=== PATIENT | male | born 1985 | race Caucasian/White ===

== ENCOUNTER 2019-05-04 09:45 | Emergency (ER) | payer OTHER ==
[~2019-05-04] VITALS: Ht 182.9 cm; Wt 83.9 kg
[2019-05-04 10:26] LABS: Urine Bacteria NONE SEEN /hpf (None Seen); Urine Blood Negative /uL (Negative); Urine Mucus FEW (None Seen); Urine Specific Gravity 1.022 (1.001-1.035); Urine WBC 1 /hpf (0 - 3)
[2019-05-04 10:44] LABS: Amphetamine Screen, Urine NEGATIVE (NEGATIVE); Barbiturate Scree,Urine NEGATIVE (NEGATIVE); Benzodiazephine Screen, Urine NEGATIVE (NEGATIVE); Cannabinoid Screen, Urine NEGATIVE (NEGATIVE); Cocaine Screen, Urine NEGATIVE (NEGATIVE); Opiate Scree,Urine NEGATIVE (NEGATIVE); Phencyclidine Screen, Urine NEGATIVE (NEGATIVE)
[2019-05-04] MEDS ORDERED: ONDANSETRON ODT 4 MG TAB PO ONE (10:45)
[2019-05-04 11:33] LABS: Basophils # (auto) 0 uL; Basophils % (auto) 0.3 % (0.0-2.0); Eosinophils # (auto) 0 uL; Eosinophils % (auto) 0.4 % (0.0-7.0); Hematocrit 42.9 % (41.0-53.0); Hemoglobin 14.4 g/dL (13.5-17.5); Lymphocytes % (auto) 14.4 % (10.0-50.0); Mean Corpuscular Hemoglobin 30.4 pg (28.0-32.0); Mean Corpuscular Hgb Conc. 33.5 g/dL (32.0-36.0); Mean Corpuscular Volume 90.8 fL (80.0-100.0); Monocytes # (auto) 0.5 uL; Monocytes % (auto) 6.5 % (0.0-12.0); Neutrophils # (auto) 5.7 uL; Neutrophils % (auto) 78.4 % (37.0-80.0); Nucleated Red Blood Cells % 0.1 %; Platelet Count (auto) 180 10^3/uL (140-450); Red Blood Cells 4.72 10^6/uL (4.5-5.90); Red Cell Distribution Width 14.1 % (11.8-14.3); White Blood Cell 7.3 10^3/uL (4.4-10.8)
[2019-05-04 11:46] LABS: Albumin 3.9 g/dL (3.4-5.0); Calcium 8.7 mg/dL (8.5-10.1); Potassium 4.4 mmol/L (3.5-5.1)
[2019-05-04 11:49] LABS: BUN/Creatinine Ratio 17.2; Bilirubin, Total 1.1 mg/dL (0.2-1.0); Total Protein 7.9 g/dL (6.4-8.2)
[2019-05-04 13:30] VITALS: BP 132/95
== END 2019-05-04 13:53 | disposition home or self-care (01) ==
LOC: ER 09:45
DX: R11.2 Nausea with vomiting, unspecified (principal); F10.10 Alcohol abuse, uncomplicated; J20.9 Acute bronchitis, unspecified; Y90.4 Blood alcohol level of 80-99 mg/100 ml
CPT/HCPCS: 36415; 71046; 80053; 80307; 80320; 81001; 85025; 99284; Q0162

== ENCOUNTER → 2019-12-16 | Emergency (ER) | payer OTHER ==
[~2019-12-16] VITALS: Ht 180.3 cm; Wt 90.7 kg
[~2019-12-16] MED LIST: HYDROcodone-ACET 10/325MG TAB PO ONE; HYDROcodone-ACET 7.5/325MG TAB PO ONE
[2019-12-16 21:15] VITALS: BP 131/85
== END | disposition home or self-care (01) ==
LOC: ER 12:48
DX: S62.011A Displaced fracture of distal pole of navicular [scaphoid] bone of right wrist, initial encounter for closed fracture (principal); S52.501A Unspecified fracture of the lower end of right radius, initial encounter for closed fracture; S62.121A Displaced fracture of lunate [semilunar], right wrist, initial encounter for closed fracture; S62.111A Displaced fracture of triquetrum [cuneiform] bone, right wrist, initial encounter for closed fracture; V87.8XXA Person injured in other specified noncollision transport accidents involving motor vehicle (traffic), initial encounter; Y93.55 Activity, bike riding; Y92.488 Other paved roadways as the place of occurrence of the external cause; Y99.8 Other external cause status
CPT/HCPCS: 29125; 73110; 73200

== ENCOUNTER 2023-02-25 06:57 | Inpatient (IN) | payer OTHER ==
[~2023-02-25] VITALS: Ht 180.3 cm; Wt 98.0 kg
[2023-02-25 07:31] LABS: Basophils # (auto) 0 10 ^3/uL (0-0.2); Basophils % (auto) 0.1 % (0.0-2.0); Eosinophils # (auto) 0 10 ^3/uL (0-0.8); Hematocrit 44.2 % (41.0-53.0); Hemoglobin 14.4 g/dL (13.5-17.5); Lymphocytes % (auto) 4.5 % (10.0-50.0); Mean Corpuscular Hemoglobin 28.5 pg (28.0-32.0); Mean Corpuscular Hgb Conc. 32.6 g/dL (32.0-36.0); Mean Corpuscular Volume 87.4 fL (80.0-100.0); Monocytes # (auto) 2.3 10 ^3/uL (0-1.3); Monocytes % (auto) 9.8 % (0.0-12.0); Neutrophils # (auto) 19.7 10 ^3/uL (1.6-8.6); Neutrophils % (auto) 85.6 % (37.0-80.0); Nucleated Red Blood Cells % 0.1 %; Red Blood Cells 5.05 10^6/uL (4.5-5.90); Red Cell Distribution Width 13.9 % (11.8-14.3); White Blood Cell 23.1 10^3/uL (4.4-10.8)
[2023-02-25 07:45] LABS: Alanine Aminotransferase 18 U/L (7-40); Albumin 4.8 g/dL (3.2-4.8); Alkaline Phosphatase 68 U/L (46-116); Anion Gap 9 (5-15); Aspartate Aminotransferase 17 U/L (13-40); BUN/Creatinine Ratio 7.4 (10.0-20.0); Bilirubin, Total 2.5 mg/dL (0.2-1.0); Blood Urea Nitrogen 9 mg/dL (9-23); Calcium 9.8 mg/dL (8.5-10.1); Carbon Dioxide 26 mmol/L (20-30); Chloride 97 mmol/L (98-107); Glucose 128 mg/dL (74-106); Potassium 4.1 mmol/L (3.5-5.1); Sodium 132 mmol/L (136-145); Total Protein 7.8 g/dL (5.7-8.2)
[2023-02-25 07:52] LABS: Urine Bacteria NONE SEEN /hpf (None Seen); Urine Blood 1+ /uL (Negative); Urine Clarity Clear (Clear); Urine Color Yellow (Yellow); Urine Mucus MODERATE (None Seen); Urine Protein, UAD 2+ (Negative); Urine WBC 2 /hpf (0 - 3)
[2023-02-25] MEDS ORDERED: ONDANSETRON HCL 4 MG/2 ML VIAL IV ONE (08:00)
[2023-02-25] MEDS ORDERED: MORPHINE SULFATE 4 MG/ML SYR/VIAL IV ONE (08:00)
[2023-02-25] MEDS ORDERED: SODIUM CHLORIDE 0.9% 1,000 ML IV ONE (08:00)
[2023-02-25] MEDS ORDERED: PIPERACILLIN-TAZOB 3.375GM 100 ML IV ONE (08:00)
[2023-02-25] MEDS ORDERED: ACETAMINOPHEN 500 MG TAB PO ONE ×2 (08:00→09:45)
[2023-02-25 08:05] LABS: Amphetamine Screen, Urine Neg (NEGATIVE)
[2023-02-25 08:06] LABS: Barbiturate Scree,Urine Neg (NEGATIVE); Benzodiazephine Screen, Urine Neg (NEGATIVE); Cannabinoid Screen, Urine Neg (NEGATIVE); Cocaine Screen, Urine Neg (NEGATIVE); Opiate Scree,Urine Neg (NEGATIVE); Phencyclidine Screen, Urine Neg (NEGATIVE)
[2023-02-25] MEDS ORDERED: GABAPENTIN 400 MG CAP PO ONE (09:15)
[2023-02-25] MEDS ORDERED: CELECOXIB 100 MG CAP PO ONE (09:15)
[2023-02-25] MEDS ORDERED: ACETAMINOPHEN IV 1000 MG/100ML (10MG/ML) IV ONE (09:15)
[2023-02-25] MEDS ORDERED: ceFAZolin 2 GM/D5W100ml 100 ML IV ONE (09:21)
[2023-02-25] MEDS ORDERED: BUPIVACAINE HCL 50 ML ONE (09:22)
[2023-02-25] MEDS ORDERED: GABAPENTIN 400 MG CAP ONE (09:29)
[2023-02-25] MEDS ORDERED: CELECOXIB 100 MG CAP ONE (09:29)
[2023-02-25] MEDS ORDERED: LIDOCAINE 2% JELLY 11ml (GLYDO) ONE (09:30)
[2023-02-25] MEDS ORDERED: fentaNYL CITRATE 100 MCG/2 ML VL ONE (09:31)
[2023-02-25] MEDS ORDERED: SUGAMMADEX 200mg/2ml Vial (100MG/ML) IV ONE (09:31)
[2023-02-25] MEDS ORDERED: LIDOCAINE 2% (LOCAL ANESTH.) PF 5ml SDV ONE (09:32)
[2023-02-25] MEDS ORDERED: ROCURONIUM 10MG/ML 10ML VIAL IV ONE (09:32)
[2023-02-25] MEDS ORDERED: KETOROLAC TROMETH 30 MG/ML 1ML VIAL ONE (09:32)
[2023-02-25] MEDS ORDERED: GLYCOPYRROLATE 0.2 MG/ML 1ML VIAL ONE (09:32)
[2023-02-25] MEDS ORDERED: ONDANSETRON HCL 4 MG/2 ML VIAL ONE (09:32)
[2023-02-25] MEDS ORDERED: DexAMETHasone SOD PHOS 10MG/1ML VIAL INJ ONE (09:32)
[2023-02-25 11:00] VITALS: O2SAT 100
[2023-02-25] MEDS ORDERED: fentaNYL CITRATE 100 MCG/2 ML VL IV PRN (11:15)
[2023-02-25] MEDS ORDERED: hydrALAZINE HCL 20 MG/ML VL IV PRN (11:15)
[2023-02-25] MEDS ORDERED: ONDANSETRON HCL 4 MG/2 ML VIAL IV PRN ×2 (11:15→13:00)
[2023-02-25] MEDS ORDERED: LABETALOL HCL 5 MG/ML 4ML SYRINGE IV PRN (11:15)
[2023-02-25] MEDS ORDERED: FLUMAZENIL 0.1 MG/ML INJ 10ML MDV IV PRN (11:15)
[2023-02-25] MEDS ORDERED: HYDROmorphone HCL 2 MG/ML VL/or syr IV PRN (11:15)
[2023-02-25] MEDS ORDERED: ePHEDrine SULFATE 50 MG/ML AMP IV PRN (11:15)
[2023-02-25] MEDS ORDERED: NALOXONE HCL 0.4 MG/ML VIAL IV PRN (11:15)
[2023-02-25] MEDS ORDERED: oxyCODONE HCL 5MG TAB PO PRN (11:15)
[2023-02-25] MEDS ORDERED: ACETAMINOPHEN 325 MG TAB PO PRN (13:00)
[2023-02-25] MEDS ORDERED: PANTOPRAZOLE 40 MG/10 ML VIAL INJ IV ONE (13:00)
[2023-02-25] MEDS: SODIUM CHLORIDE 0.9% 1,000 ML IV SCH ×2 (13:00→23:00)
[2023-02-25] MEDS: PIPERACILLIN-TAZOB 3.375GM 100 ML IV SCH ×2 (14:00→23:02)
[2023-02-25 18:09] VITALS: RESP 18; O2SAT 97
[2023-02-25 20:00] VITALS: RESP 18; O2SAT 95
[2023-02-25] MEDS: MORPHINE SULFATE INJ 2 MG/ml SYRG IV PRN (20:14)
[2023-02-26 05:00] VITALS: BP 98/53; PULSE 72; RESP 22; TEMP 100; O2SAT 94
[2023-02-26] MEDS: PIPERACILLIN-TAZOB 3.375GM 100 ML IV SCH ×3 (05:10→21:02)
[2023-02-26] MEDS: SODIUM CHLORIDE 0.9% 1,000 ML IV SCH ×2 (05:11→19:00)
[2023-02-26 06:34] LABS: Basophils # (auto) 0 10 ^3/uL (0-0.2); Basophils % (auto) 0.1 % (0.0-2.0); Eosinophils # (auto) 0 10 ^3/uL (0-0.8); Hematocrit 34.6 % (41.0-53.0); Hemoglobin 11.3 g/dL (13.5-17.5); Lymphocytes # (auto) 1.1 10 ^3/uL (0.4-5.4); Lymphocytes % (auto) 6.2 % (10.0-50.0); Mean Corpuscular Hemoglobin 28.6 pg (28.0-32.0); Mean Corpuscular Hgb Conc. 32.8 g/dL (32.0-36.0); Mean Corpuscular Volume 87.3 fL (80.0-100.0); Monocytes # (auto) 1.8 10 ^3/uL (0-1.3); Monocytes % (auto) 10.5 % (0.0-12.0); Neutrophils # (auto) 14.5 10 ^3/uL (1.6-8.6); Neutrophils % (auto) 83.2 % (37.0-80.0); Red Blood Cells 3.96 10^6/uL (4.5-5.90); Red Cell Distribution Width 13.8 % (11.8-14.3); White Blood Cell 17.5 10^3/uL (4.4-10.8)
[2023-02-26 07:37] LABS: Albumin 3.7 g/dL (3.2-4.8); Alkaline Phosphatase 62 U/L (46-116); Anion Gap 5 (5-15); Aspartate Aminotransferase 9 U/L (13-40); BUN/Creatinine Ratio 13.6 (10.0-20.0); Blood Urea Nitrogen 12 mg/dL (9-23); Calcium 8.6 mg/dL (8.7-10.4); Carbon Dioxide 26 mmol/L (20-30); Chloride 106 mmol/L (98-107); Glucose 113 mg/dL (74-106); Sodium 137 mmol/L (136-145)
[2023-02-26 07:38] LABS: Bilirubin, Total 1.3 mg/dL (0.2-1.0)
[2023-02-26 07:49] LABS: Alanine Aminotransferase 11 U/L (7-40)
[2023-02-26 08:44] VITALS: BP 92/56; PULSE 60; RESP 20; TEMP 97.6; O2SAT 100
[2023-02-26] MEDS: PANTOPRAZOLE 40 MG/10 ML VIAL INJ IV SCH (10:27)
[2023-02-26 13:00] VITALS: BP 103/68; PULSE 67; RESP 16; TEMP 97.8; O2SAT 96
[2023-02-26 17:00] VITALS: BP 132/77; PULSE 63; RESP 16; TEMP 98.6; O2SAT 92
[2023-02-26 20:00] VITALS: PULSE 65; RESP 20; O2SAT 96
[2023-02-26] MEDS: MORPHINE SULFATE INJ 2 MG/ml SYRG IV PRN (20:57)
[2023-02-26 22:00] VITALS: BP 98/55; PULSE 69; RESP 20; TEMP 98.9; O2SAT 93
[2023-02-27 05:00] VITALS: BP 105/62; PULSE 63; RESP 22; TEMP 98.1; O2SAT 94
[2023-02-27] MEDS: PIPERACILLIN-TAZOB 3.375GM 100 ML IV SCH ×3 (06:27→21:31)
[2023-02-27] MEDS: SODIUM CHLORIDE 0.9% 1,000 ML IV SCH ×2 (06:28→17:31)
[2023-02-27 08:00] VITALS: BP 106/61; PULSE 52; RESP 20; TEMP 97.9; O2SAT 95
[2023-02-27] MEDS: PANTOPRAZOLE 40 MG/10 ML VIAL INJ IV SCH (09:41)
[2023-02-27 12:00] VITALS: BP 111/70; PULSE 59; RESP 20; TEMP 98.1; O2SAT 96
[2023-02-27 16:00] VITALS: BP 120/72; PULSE 54; RESP 20; TEMP 98.5; O2SAT 97
[2023-02-27 20:00] VITALS: RESP 18; O2SAT 96
[2023-02-27] MEDS: HYDROcodone-ACET 5/325MG TAB PO PRN (21:31)
[2023-02-27 22:00] VITALS: BP 102/74; PULSE 54; RESP 18; TEMP 98.4; O2SAT 96
[2023-02-28] MEDS: PIPERACILLIN-TAZOB 3.375GM 100 ML IV SCH ×4 (06:04→23:16)
[2023-02-28] MEDS: SODIUM CHLORIDE 0.9% 1,000 ML IV SCH ×3 (06:04→22:41)
[2023-02-28] MEDS: HYDROcodone-ACET 5/325MG TAB PO PRN ×4 (06:10→20:03)
[2023-02-28 08:00] VITALS: RESP 18
[2023-02-28 09:00] VITALS: BP 105/70; PULSE 62; RESP 18; TEMP 98.3; O2SAT 96
[2023-02-28] MEDS: PANTOPRAZOLE 40 MG/10 ML VIAL INJ IV SCH (10:15)
[2023-02-28 13:00] VITALS: BP 96/48; PULSE 48; RESP 18; TEMP 98; O2SAT 99
[2023-02-28] MEDS ORDERED: POLYETHYLENE GLYCOL 17 GM PWDR PO PRN (14:30)
[2023-02-28 16:50] VITALS: BP 106/63; PULSE 60; RESP 17; TEMP 98.5; O2SAT 94
[2023-02-28 20:00] VITALS: RESP 20; O2SAT 96
[2023-02-28 22:00] VITALS: BP 97/49; PULSE 83; RESP 17; TEMP 97.8; O2SAT 96
[2023-03-01 05:00] VITALS: BP 113/77; PULSE 80; RESP 16; TEMP 98.6; O2SAT 98
[2023-03-01] MEDS: PIPERACILLIN-TAZOB 3.375GM 100 ML IV SCH ×2 (05:37→15:29)
[2023-03-01] MEDS: SODIUM CHLORIDE 0.9% 1,000 ML IV SCH (06:23)
[2023-03-01 08:00] VITALS: BP 115/74; PULSE 67; RESP 18; TEMP 97.6
[2023-03-01] MEDS: HYDROcodone-ACET 5/325MG TAB PO PRN (08:10)
[2023-03-01] MEDS: PANTOPRAZOLE 40 MG/10 ML VIAL INJ IV SCH (08:10)
[2023-03-01 08:30] VITALS: BP 115/74; PULSE 67; RESP 18; TEMP 97.6; O2SAT 97
[2023-03-01 12:30] VITALS: BP 113/76; PULSE 59; RESP 18; TEMP 97.6; O2SAT 96
[2023-03-01 17:00] VITALS: BP 116/78; PULSE 61; RESP 18; TEMP 98.3; O2SAT 96
[2023-03-01] MEDS ORDERED: METR-344 PO (17:30)
[2023-03-01] MEDS ORDERED: LEVO500T91 PO (17:30)
== END 2023-03-01 19:30 | disposition home or self-care (01) | DRG 853 ==
LOC: ER 06:57 → OVERFLOW 12:48 → WEST WING 17:50
PROVIDERS: ADMIT Nurse Practitioner Family; ATTEND Nurse Practitioner Acute Care
PROC: 0DTJ4ZZ Resection of Appendix, Percutaneous Endoscopic Approach (ICD-10-PCS; principal; 2023-02-25 09:31)
DX: A41.9 Sepsis, unspecified organism (principal); K35.33 Acute appendicitis with perforation, localized peritonitis, and gangrene, with abscess; E87.1 Hypo-osmolality and hyponatremia; K21.9 Gastro-esophageal reflux disease without esophagitis; E66.9 Obesity, unspecified; Z68.30 Body mass index [BMI] 30.0-30.9, adult
CPT/HCPCS: 36415; 74176; 80053; 80307; 81001; 85025; C9113; G0378; J0131; J1100; J1885; J2001; J2405; J2543; J3490